=== PATIENT | female | born 1995 | race Caucasian/White ===

== ENCOUNTER 2017-06-08 07:23 | Inpatient (IN) | payer SELFPAY ==
[2017-06-08] MEDS ORDERED: Carboprost Tromethamine 250 MCG/1 ML Amp IM PRN (08:03)
[2017-06-08] MEDS ORDERED: Sodium Chloride 0.9% 10 ML Syringe FLUSH PRN (08:03)
[2017-06-08] MEDS ORDERED: Misoprostol 200 MCG Tab PO PRN (08:03)
[2017-06-08] MEDS ORDERED: Ampicillin 2 GM in Sodium Chloride 0.9% 100 ML IV ONE (08:03)
[2017-06-08] MEDS ORDERED: Methylergonovine 0.2 MG/1 ML Amp IM PRN (08:03)
[2017-06-08] MEDS ORDERED: Butorphanol 1 MG/ML SDV IVPUSH PRN (08:03)
[2017-06-08] MEDS ORDERED: Sodium Chloride 0.9% 2.5 ML Syringe FLUSH PRN (08:03)
[2017-06-08] MEDS ORDERED: Water For Irrigation,Sterile 1,000 ML Container IRR PRN (08:03)
[2017-06-08] MEDS ORDERED: Lidocaine 1% 50 ML MDV INJECT PRN (08:03)
[2017-06-08] MEDS ORDERED: Nalbuphine 10 MG/1 ML Vial IVPUSH PRN (08:03)
[2017-06-08] MEDS ORDERED: Oxytocin/0.9 % Sodium Chloride 30 UNIT/500 ML BAG IV SCH (08:15)
[2017-06-08] MEDS ORDERED: Lactated Ringers 1,000 ML IV SCH (08:15)
[2017-06-08] MEDS ORDERED: Oxytocin 10 Units/1 ML SDV ONE (08:19)
[2017-06-08] MEDS ORDERED: fentaNYL 250 MCG/5 ML SDV ONE (08:21)
[2017-06-08] MEDS ORDERED: Propofol 200 MG/20 ML SDV ONE (08:21)
[2017-06-08] MEDS ORDERED: Succinylcholine/Normal Saline 200 MG/10 ML Syringe ONE (08:21)
[2017-06-08] MEDS ORDERED: Ondansetron 4 MG/2 ML SDV ONE (08:21)
--- NOTE | 2017-06-08 08:30 | PCM.PREANE ---
Preanesthetic Assessment - Anesthesia/Transfusion/Family Hx Anesthesia History: No Prior Anesthesia - Review of Systems General: No Symptoms Pulmonary: No Symptoms Cardiovascular: No Symptoms Gastrointestinal: No Symptoms Neurological: No Symptoms Other: Reports: None - Physical Assessment Height: 5 ft 3 in Weight: 97.522 kg ASA Class: 2E Mental Status: Alert & Oriented x3 Airway Class: Mallampati = 2 Dentition: Reports: Normal Dentition Thyro-Mental Finger Breadths: 3 Mouth Opening Finger Breadths: 3 ROM/Head Extension: Full Lungs: Clear to Auscultation, Normal Respiratory Effort Cardiovascular: Regular Rate, Regular Rhythm - Lab Values: Laboratory Last Values WBC 20.61 K/uL (4.0-11.0) H 06/08/17 07:54 RBC 4.19 M/uL (4.30-5.90) L 06/08/17 07:54 Hgb 12.7 g/dL (12.0-16.0) 06/08/17 07:54 Hct 36.2 % (36.0-46.0) 06/08/17 07:54 MCV 86.4 fL (80.0-98.0) 06/08/17 07:54 MCH 30.3 pg (27.0-32.0) 06/08/17 07:54 MCHC 35.1 g/dL (31.0-37.0) 06/08/17 07:54 RDW Std Deviation 41.2 fl (28.0-62.0) 06/08/17 07:54 RDW Coeff of Moris 13 % (11.0-15.0) 06/08/17 07:54 Plt Count 201 K/uL (150-400) 06/08/17 07:54 MPV 11.40 fL (7.40-12.00) 06/08/17 07:54 Nucleated RBC % 0.0 /100WBC 06/08/17 07:54 Nucleated RBCs # 0 K/uL 06/08/17 07:54 - Allergies Allergies/Adverse Reactions: Allergies Allergy/AdvReac Type Severity Reaction Status Date / Time No Known Allergies Allergy Verified 06/08/17 08:02 - Acknowledgements Anesthesia Type Planned: General Anesthesia Pt an Appropriate Candidate for the Planned Anesthesia: Yes Alternatives and Risks of Anesthesia Discussed w Pt/Guardian: Yes Pt/Guardian Understands and Agrees with Anesthesia Plan: Yes PreAnesthesia Questionnaire HEENT History: Reports: None Cardiovascular History: Reports: None Respiratory History: Reports: None Gastrointestinal History: Reports: GERD Genitourinary History: Reports: None Musculoskeletal History: Reports: None Neurological History: Reports: None Psychiatric History: Reports: None Endocrine/Metabolic History: Reports: None Hematologic History: Reports: None Immunologic History: Reports: None - CURRENT (IN HOUSE) MEDS Current Meds: Current Medications Butorphanol Tartrate (Stadol) 1 mg IVPUSH Q1H PRN PRN Reason: Pain Carboprost Tromethamine (Hemabate Ds) 250 mcg IM ASDIRECTED PRN PRN Reason: Post Hemorrhage Ampicillin Sodium 2 gm/ Sodium (Chloride) 100 mls @ 200 mls/hr IV ONETIME ONE Stop: 06/08/17 08:32 Lactated Ringer's (Ringers, Lactated) 1,000 mls @ 150 mls/hr IV ASDIRECTED LESLY Oxytocin/Sodium Chloride (Oxytocin 30 Unit/500 Ml-Ns) 30 unit in 500 mls @ 500 mls/hr IV TITRATE LESLY Lidocaine HCl (Xylocaine 1%) 50 ml INJECT .ONCE PRN PRN Reason: Laceration repair Methylergonovine Maleate (Methergine) 0.2 mg IM ASDIRECTED PRN PRN Reason: Post Hemorrhage Misoprostol (Cytotec) 200 mcg PO .ONCE PRN PRN Reason: Post Hemorrhage Nalbuphine HCl (Nubain) 10 mg IVPUSH Q1H PRN PRN Reason: Pain (severe 7-10) Sodium Chloride (Saline Flush) 10 ml FLUSH ASDIRECTED PRN PRN Reason: Keep Vein Open Sodium Chloride (Saline Flush) 2.5 ml FLUSH ASDIRECTED PRN PRN Reason: Keep Vein Open Sterile Water (Sterile Water For Irrigation) 1,000 ml IRR ASDIRECTED PRN PRN Reason: delivery Discontinued Medications Fentanyl (Sublimaze) Confirm Administered Dose 250 mcg .ROUTE .STK-MED ONE Stop: 06/08/17 08:22 Ondansetron HCl (Zofran) Confirm Administered Dose 4 mg .ROUTE .STK-MED ONE Stop: 06/08/17 08:22 Oxytocin (Pitocin) Confirm Administered Dose 20 unit .ROUTE .STK-MED ONE Stop: 06/08/17 08:20 Propofol (Diprivan 20 Ml) Confirm Administered Dose 200 mg .ROUTE .STK-MED ONE Stop: 06/08/17 08:22 Succinylcholine Chloride (Succinylcholine In Ns Pf) Confirm Administered Dose 200 mg .ROUTE .STK-MED ONE Stop: 06/08/17 08:22
[2017-06-08 09:16] LABS: CHLORIDE,CL 101 mmol/L (98-110); SODIUM,NA 130 mmol/L (136-146)
--- NOTE | 2017-06-08 09:44 | PCM.SN ---
- Free Text/Narrative Note: CMP added to labs over concerns sustained HTN since patient arrival. Blood pressures have been >170/>100 since being brought to the OR for delivery. Results were reviewed with Dr Villa and IVF's were changed to NS at this time.
[2017-06-08] MEDS ORDERED: ceFAZolin 1 GM Vial ONE (10:03)
[2017-06-08] MEDS ORDERED: Sodium Chloride 0.9% 0 ML ONE (10:03)
[2017-06-08] MEDS ORDERED: Misoprostol 200 MCG Tab ONE (10:41)
--- NOTE | 2017-06-08 11:33 | PCM.DEL ---
L & D Note - General Info Date of Service: 06/08/17 Mother's Due Date: 06/08/17 - Delivery Note Labor: Spontaneous Delivery Outcome: Livebirth Infant Delivery Method: Spontaneous Vaginal Delivery-Twins Presentation: "B" was breech and Dr Villa preformed an ECV Nuchal Cord: None Anesthesia Type: None Amniotic Fluid Description: Clear Episiotomy Type: None Laceration: None Placenta: Intact, Spontaneous Cord: 3 Vessels Resuscitation Needed: No Provider: Madonna Santiago Score 1 min: 9 Score 5 min: 9 Second Stage Interventions: Reports: Pushing, McRobert's Position Delivery Comments (Free Text/Narrative):: of twin girls over intact perineum. Twin A delivered with effective pushing , Head and body followed easily. to mothers abd with RN at bs for evaluation. Delayed cord clamping for 1 min. CC and cut. Infant to warmer for further evaluation. Ultrasound noted twin B breach with head in upper right quad. Dr Villa preformed an ECV under u/s guidance. Baby B delivered with good pushing in the cephalic presentation. Shoulders and body followed easily. Infant to mothers abd, CC x2 and cut by FOB. to warmer for evaluation. Pitocin to IVF. Placentas delivered grossly intact fussed. Inspection noted intact perineum. Uterus boggy, cytotec 600mcg po and methergine added to pitocin to stem the bleeding. Bladder drained with cath, Bleeding went to scant within 10 min. Bimanual normal. EBL 500cc, AGPARS A 03/22, B 8 Wt: A: 5lb 5oz, B : pending. Mother moved from OR to pp room and infants brought to her for breast feeding. Mother and babies stable and bonding well. All counts were correct. - General Info Date of Service: 06/08/17 Functional Status: Reports: Pain Controlled, Tolerating Diet - Review of Systems General: Reports: No Symptoms HEENT: Reports: No Symptoms Pulmonary: Reports: No Symptoms Cardiovascular: Reports: No Symptoms Gastrointestinal: Reports: No Symptoms Genitourinary: Reports: No Symptoms Musculoskeletal: Reports: No Symptoms Skin: Reports: No Symptoms Neurological: Reports: No Symptoms Psychiatric: Reports: No Symptoms - Patient Data Weight - Most Recent: 97.522 kg Lab Results Last 24 Hours: Laboratory Results - last 24 hr 06/08/17 06/08/17 06/08/17 Range/Units 07:54 07:54 07:54 WBC 20.61 H (4.0-11.0) K/uL RBC 4.19 L (4.30-5.90) M/uL Hgb 12.7 (12.0-16.0) g/dL Hct 36.2 (36.0-46.0) % MCV 86.4 (80.0-98.0) fL MCH 30.3 (27.0-32.0) pg MCHC 35.1 (31.0-37.0) g/dL RDW Std Deviation 41.2 (28.0-62.0) fl RDW Coeff of Moris 13 (11.0-15.0) % Plt Count 201 (150-400) K/uL MPV 11.40 (7.40-12.00) fL Nucleated RBC % 0.0 /100WBC Nucleated RBCs # 0 K/uL Sodium 130 L (136-146) mmol/L Potassium 3.7 (3.5-5.1) mmol/L Chloride 101 (98-110) mmol/L Carbon Dioxide 17 L (21-31) mmol/L BUN 13 (6.0-23.0) mg/dL Creatinine 0.7 (0.6-1.5) mg/dL Est Cr Clr Drug Dosing 103.40 mL/min Estimated GFR (MDRD) > 60.0 ml/min Glucose 138 H (60-110) mg/dL Calcium 8.6 L (8.8-10.8) mg/dL Total Bilirubin 0.4 (0.1-1.5) mg/dL AST 21 (5-40) IU/L ALT 16 (8-54) IU/L Alkaline Phosphatase 158 H (40-150) Total Protein 6.5 (6.0-8.0) g/dL Albumin 3.2 L (3.5-5.0) g/dL Globulin 3.3 (2.0-3.5) g/dL Albumin/Globulin Ratio 1.0 L (1.3-2.8) Blood Type A POSITIVE Antibody Screen NEGATIVE Med Orders - Current: Current Medications Butorphanol Tartrate (Stadol) 1 mg IVPUSH Q1H PRN PRN Reason: Pain Carboprost Tromethamine (Hemabate Ds) 250 mcg IM ASDIRECTED PRN PRN Reason: Post Hemorrhage Lactated Ringer's (Ringers, Lactated) 1,000 mls @ 150 mls/hr IV ASDIRECTED LESLY Oxytocin/Sodium Chloride (Oxytocin 30 Unit/500 Ml-Ns) 30 unit in 500 mls @ 500 mls/hr IV TITRATE LESLY Lidocaine HCl (Xylocaine 1%) 50 ml INJECT .ONCE PRN PRN Reason: Laceration repair Methylergonovine Maleate (Methergine) 0.2 mg IM ASDIRECTED PRN PRN Reason: Post Hemorrhage Misoprostol (Cytotec) 200 mcg PO .ONCE PRN PRN Reason: Post Hemorrhage Nalbuphine HCl (Nubain) 10 mg IVPUSH Q1H PRN PRN Reason: Pain (severe 7-10) Sodium Chloride (Saline Flush) 10 ml FLUSH ASDIRECTED PRN PRN Reason: Keep Vein Open Sodium Chloride (Saline Flush) 2.5 ml FLUSH ASDIRECTED PRN PRN Reason: Keep Vein Open Sterile Water (Sterile Water For Irrigation) 1,000 ml IRR ASDIRECTED PRN PRN Reason: delivery Discontinued Medications Cefazolin Sodium (Ancef) Confirm Administered Dose 2 gm .ROUTE .STK-MED ONE Stop: 06/08/17 10:04 Fentanyl (Sublimaze) Confirm Administered Dose 250 mcg .ROUTE .STK-MED ONE Stop: 06/08/17 08:22 Ampicillin Sodium 2 gm/ Sodium (Chloride) 100 mls @ 200 mls/hr IV ONETIME ONE Stop: 06/08/17 08:32 Sodium Chloride (Normal Saline) Confirm Administered Dose 20 mls @ as directed .ROUTE .STK-MED ONE Stop: 06/08/17 10:04 Misoprostol (Cytotec) Confirm Administered Dose 600 mcg .ROUTE .STK-MED ONE Stop: 06/08/17 10:42 Ondansetron HCl (Zofran) Confirm Administered Dose 4 mg .ROUTE .STK-MED ONE Stop: 06/08/17 08:22 Oxytocin (Pitocin) Confirm Administered Dose 20 unit .ROUTE .STK-MED ONE Stop: 06/08/17 08:20 Propofol (Diprivan 20 Ml) Confirm Administered Dose 200 mg .ROUTE .STK-MED ONE Stop: 06/08/17 08:22 Succinylcholine Chloride (Succinylcholine In Ns Pf) Confirm Administered Dose 200 mg .ROUTE .STK-MED ONE Stop: 06/08/17 08:22 - Exam General: Alert, Oriented Lungs: Normal Respiratory Effort GI/Abdominal Exam: Soft, Non-Tender (Female) Exam: Normal External Exam, Normal Bimanual Exam, Vaginal Bleeding Back Exam: Full Range of Motion Extremities: Normal Range of Motion, Non-Tender, No Pedal Edema, Normal Capillary Refill Skin: Warm, Dry, Intact Wound/Incisions: Healing Well Neurological: No New Focal Deficit, Normal Speech, Normal Tone Psy/Mental Status: Alert, Normal Affect, Normal Mood - Problem List & Annotations (1) Twin gestation in third trimester SNOMED Code(s): 60991634 Code(s): O30.003 - TWIN PREG, UNSP NUM PLCNTA & AMNIO SACS, THIRD TRIMESTER Status: Acute Priority: High Current Visit: Yes Qualifiers: Multiple gestation type: monochorionic and diamniotic Qualified Code(s): O30.033 - Twin , monochorionic/diamniotic, third trimester (2) (normal spontaneous vaginal delivery) SNOMED Code(s): 97076837 Code(s): O80 - ENCOUNTER FOR FULL-TERM UNCOMPLICATED DELIVERY Status: Acute Priority: High Current Visit: Yes - Problem List Review Problem List Initiated/Reviewed/Updated: Yes - Assessment Assessment:: Delivery A: twins, APGARS 9/9 and 8/9. Wt: 5lb 5oz B pending. EBL 500cc, intact, stable P: routine pp plan of care
--- NOTE | 2017-06-08 11:58 | PCM.LDHP ---
L&D History of Present Illness - General Date of Service: 06/08/17 Admit Problem/Dx: Patient Status Order with Admit Dx/Problem 06/08/17 08:04 Patient Status [ADT] Routine Admission Diagnosis/Problem Admission Diagnosis/Problem - planned 06/08/17 11:54 21yo G1 EDC 06/08/2017 40 0/7wks. TWINS, A+, rubella and GBS unkwn. PNC with home lime sludge mixer. Comes completely dilated vertex/breech presentation. Source of Information: Patient History Limitations: Reports: No Limitations - History of Present Illness Improves with: Reports: None Worsens with: Reports: None Associated Symptoms: Reports: N - Related Data Allergies/Adverse Reactions: Allergies Allergy/AdvReac Type Severity Reaction Status Date / Time No Known Allergies Allergy Verified 06/08/17 08:02 Past Medical History HEENT History: Reports: None Cardiovascular History: Reports: None Respiratory History: Reports: None Gastrointestinal History: Reports: GERD Genitourinary History: Reports: None Musculoskeletal History: Reports: None Neurological History: Reports: None Psychiatric History: Reports: None Endocrine/Metabolic History: Reports: None Hematologic History: Reports: None Immunologic History: Reports: None H&P Review of Systems - Review of Systems: Review Of Systems: See Below General: Reports: No Symptoms HEENT: Reports: No Symptoms Pulmonary: Reports: No Symptoms Cardiovascular: Reports: No Symptoms Gastrointestinal: Reports: No Symptoms Genitourinary: Reports: No Symptoms Musculoskeletal: Reports: No Symptoms Skin: Reports: No Symptoms Psychiatric: Reports: No Symptoms Neurological: Reports: No Symptoms Hematologic/Lymphatic: Reports: No Symptoms Immunologic: Reports: No Symptoms L&D Exam - Exam Exam: See Below - Vital Signs Weight: 97.522 kg - OB Specific Presentation: "B" was breech and Dr Villa preformed an ECV - Exam General: Alert, Oriented, Cooperative HEENT: Hearing Intact Lungs: Normal Respiratory Effort GI/Abdominal Exam: Soft, Non-Tender, No Organomegaly, No Distention (gravid twins) Rectal Exam: Deferred Genitourinary: Normal external exam, Normal bimanual exam Back Exam: Full Range of Motion Extremities: Normal Range of Motion, Non-Tender, No Pedal Edema, Normal Capillary Refill Skin: Warm, Dry, Intact Neurological: Reflexes Equal Bilateral, Strength Equal Bilateral, Normal Gait, Normal Speech, Normal Tone Psychiatric: Alert, Normal Affect, Normal Mood - Patient Data Lab Results Last 24 hrs: Laboratory Results - last 24 hr 06/08/17 06/08/17 06/08/17 Range/Units 07:54 07:54 07:54 WBC 20.61 H (4.0-11.0) K/uL RBC 4.19 L (4.30-5.90) M/uL Hgb 12.7 (12.0-16.0) g/dL Hct 36.2 (36.0-46.0) % MCV 86.4 (80.0-98.0) fL MCH 30.3 (27.0-32.0) pg MCHC 35.1 (31.0-37.0) g/dL RDW Std Deviation 41.2 (28.0-62.0) fl RDW Coeff of Moris 13 (11.0-15.0) % Plt Count 201 (150-400) K/uL MPV 11.40 (7.40-12.00) fL Nucleated RBC % 0.0 /100WBC Nucleated RBCs # 0 K/uL Sodium 130 L (136-146) mmol/L Potassium 3.7 (3.5-5.1) mmol/L Chloride 101 (98-110) mmol/L Carbon Dioxide 17 L (21-31) mmol/L BUN 13 (6.0-23.0) mg/dL Creatinine 0.7 (0.6-1.5) mg/dL Est Cr Clr Drug Dosing 103.40 mL/min Estimated GFR (MDRD) > 60.0 ml/min Glucose 138 H (60-110) mg/dL Calcium 8.6 L (8.8-10.8) mg/dL Total Bilirubin 0.4 (0.1-1.5) mg/dL AST 21 (5-40) IU/L ALT 16 (8-54) IU/L Alkaline Phosphatase 158 H (40-150) Total Protein 6.5 (6.0-8.0) g/dL Albumin 3.2 L (3.5-5.0) g/dL Globulin 3.3 (2.0-3.5) g/dL Albumin/Globulin Ratio 1.0 L (1.3-2.8) Blood Type A POSITIVE Antibody Screen NEGATIVE Result Diagrams: 06/08/17 07:54 06/08/17 07:54 - Problem List (1) Twin gestation in third trimester SNOMED Code(s): 46640866 ICD Code: O30.003 - TWIN PREG, UNSP NUM PLCNTA & AMNIO SACS, THIRD TRIMESTER Status: Acute Priority: High Current Visit: Yes Qualifiers: Multiple gestation type: monochorionic and diamniotic Qualified Code(s): O30.033 - Twin , monochorionic/diamniotic, third trimester (2) (normal spontaneous vaginal delivery) SNOMED Code(s): 69453716 ICD Code: O80 - ENCOUNTER FOR FULL-TERM UNCOMPLICATED DELIVERY Status: Acute Priority: High Current Visit: Yes Problem List Initiated/Reviewed/Updated: Yes Orders Last 24hrs: Active Orders 24 hr Category Date Time Status Patient Status [ADT] Routine ADT 06/08/17 08:04 Active Heart Tones [RC] CONTINUOUS Care 06/08/17 08:04 Active Non Stress Test [RC] PER UNIT ROUTINE Care 06/08/17 08:04 Active May Shower [RC] ASDIRECTED Care 06/08/17 08:04 Active Notify Provider [RC] PRN Care 06/08/17 08:04 Active Up ad Margarette [RC] ASDIRECTED Care 06/08/17 08:04 Active Vaginal Exam [RC] PRN Care 06/08/17 08:04 Active Vital Signs [RC] PER UNIT ROUTINE Care 06/08/17 08:04 Active OB 2 Or 3 Tri Ea Addl Gest [US] Urgent Exams 06/08/17 08:03 Taken OB 2 Or 3 Tri Sgl 1st Gest [US] Urgent Exams 06/08/17 08:03 Ordered Butorphanol [Stadol] Med 06/08/17 08:03 Active 1 mg IVPUSH Q1H PRN Carboprost Tromethamine [Hemabate DS] Med 06/08/17 08:03 Active 250 mcg IM ASDIRECTED PRN Lactated Ringers [Ringers, Lactated] 1,000 ml Med 06/08/17 08:15 Active IV ASDIRECTED Lidocaine 1% [Xylocaine 1%] Med 06/08/17 08:03 Active 50 ml INJECT .ONCE PRN Methylergonovine [Methergine] Med 06/08/17 08:03 Active 0.2 mg IM ASDIRECTED PRN Misoprostol [Cytotec] Med 06/08/17 08:03 Active 200 mcg PO .ONCE PRN Nalbuphine [Nubain] Med 06/08/17 08:03 Active 10 mg IVPUSH Q1H PRN Oxytocin/0.9 % Sodium Chloride [Oxytocin 30 Unit/500 ML Med 06/08/17 08:15 Active -NS] 30 unit in 500 ml IV TITRATE Sodium Chloride 0.9% [Saline Flush] Med 06/08/17 08:03 Active 10 ml FLUSH ASDIRECTED PRN Sodium Chloride 0.9% [Saline Flush] Med 06/08/17 08:03 Active 2.5 ml FLUSH ASDIRECTED PRN Water For Irrigation,Sterile [Sterile Water for Med 06/08/17 08:03 Active Irrigation] 1,000 ml IRR ASDIRECTED PRN Scalp Electrode [WOMSER] Per Unit Routine Oth 06/08/17 08:04 Ordered Peripheral IV Insertion Adult [OM.PC] Routine Oth 06/08/17 08:04 Ordered Resuscitation Status Routine Resus Stat 06/08/17 08:03 Ordered Medication Orders Butorphanol Tartrate (Stadol) 1 mg IVPUSH Q1H PRN PRN Reason: Pain Carboprost Tromethamine (Hemabate Ds) 250 mcg IM ASDIRECTED PRN PRN Reason: Post Hemorrhage Lactated Ringer's (Ringers, Lactated) 1,000 mls @ 150 mls/hr IV ASDIRECTED LESLY Oxytocin/Sodium Chloride (Oxytocin 30 Unit/500 Ml-Ns) 30 unit in 500 mls @ 500 mls/hr IV TITRATE LESLY Lidocaine HCl (Xylocaine 1%) 50 ml INJECT .ONCE PRN PRN Reason: Laceration repair Methylergonovine Maleate (Methergine) 0.2 mg IM ASDIRECTED PRN PRN Reason: Post Hemorrhage Misoprostol (Cytotec) 200 mcg PO .ONCE PRN PRN Reason: Post Hemorrhage Nalbuphine HCl (Nubain) 10 mg IVPUSH Q1H PRN PRN Reason: Pain (severe 7-10) Sodium Chloride (Saline Flush) 10 ml FLUSH ASDIRECTED PRN PRN Reason: Keep Vein Open Sodium Chloride (Saline Flush) 2.5 ml FLUSH ASDIRECTED PRN PRN Reason: Keep Vein Open Sterile Water (Sterile Water For Irrigation) 1,000 ml IRR ASDIRECTED PRN PRN Reason: delivery Assessment/Plan Comment:: A:21yo G1 EDC 06/08/2017 40 0/7wks. TWINS, A+, rubella and GBS unkwn. PNC with home lime sludge mixer. Comes completely dilated vertex/breech presentation. Comes in labor completely dilated. Term twin . care from her mother whom is a lay out former. P: Moved to OR for and ECV by Dr Villa and then B delivered . Mother and baby's stable and bonding well.
[2017-06-08] MEDS ORDERED: Lanolin 100% Cream 7 GM Tube TOP PRN (12:00)
[2017-06-08] MEDS ORDERED: Benzocaine/Menthol 20%-0.5% Spray 78 GM Cannister TOP PRN (12:00)
[2017-06-08] MEDS ORDERED: oxyCODONE 5 MG Tab PO PRN (12:00)
[2017-06-08] MEDS ORDERED: Bisacodyl 10 MG Supp RECTAL PRN (12:00)
[2017-06-08] MEDS ORDERED: Witch Hazel Medicated Pads 40/Jar TOP PRN (12:00)
[2017-06-08] MEDS ORDERED: Docusate Sodium 100 MG Cap PO PRN (12:00)
[2017-06-08] MEDS ORDERED: Acetaminophen 500 MG Tab PO PRN ×2 (12:00)
[2017-06-08] MEDS ORDERED: Ibuprofen 800 MG Tab PO PRN (12:00)
[2017-06-08] MEDS ORDERED: Ibuprofen 400 MG Tab PO PRN (12:00)
--- NOTE | 2017-06-08 22:23 | OR ---
SURGEON: Scott Villa MD DATE OF PROCEDURE: HISTORY: Ms. Cohen is a 21-year-old primigravida. She has had no care. She presented to Labor and Delivery in active labor and she was completely dilated with vertex presentation. She informed the nurses in Labor and Delivery that she is with twins and they are term and the second one breech. At the time of admission to the hospital, the patient's vital sign was stable. heart rate for both fetus was category 1. On further inquiry, the patient said she was receiving the care from her mother who is a public relations player and they were planning to have home delivery, but however, the patient's mother who is a public relations player when the patient progressed to complete she ruptured the bag of the water and she thought better of it and she transferred the patient to the hospital. Upon evaluation at the admission of the hospital, her vital signs were essentially normal, the heart rate was category 1 for both fetuses. Her vaginal examination shows that she is complete vertex, 0 to +1 station, and I informed the patient that we are going to transfer her to the operative room and we would try to do a vaginal delivery in the operative room. DESCRIPTION OF PROCEDURE: Core Inserter, Dr. Santiago was called and the OR crew was called to be on standby. Anesthesia was available in-house and I informed the patient that we will deliver the first fetus vaginally and then we would try to do external version if it was possible for the second fetus to see if we can rotate it to vertex presentation since it is confirmed to be transfer with the back up by the ultrasound and the head was in the right upper quadrant. The patient informed that if we were unable to turn the baby, she would have section under general anesthesia. If we have any abnormality in the heart rate, then she would have a section under general anesthesia. I explained that to her and the father of the baby and her mother this process in detail. She has consented for it. The patient has commenced to push and Chelsi Martinez rotating attained delivery and the fist twin delivered without any problem and it cried immediately and scores reported to be 8 to 9. The weight was not available and Dr. Santiago proceeded to take care of the fetus. Next, I did an ultrasound and I guided the fetus head towards the pelvis. However, the shoulder was engaged in the pelvis and preventing the head from descend, so a partial external cephalic version was performed at that time. The patient did have a ruptured membrane of the second sac and a combination of me doing external and internal cephalic version, I was able to guide the baby's head to the canal and with the patient pushing, then the head was engaged in the canal. heart rate was between 156 to 176. We started the patient on Pitocin and she started having irregular contraction and then descent happened and then she started pushing. With that, she was able to accomplish vaginal delivery of the second twin without any problem. Fetus cried immediately. scores reported to be [address] Santiago proceeded to take care and resuscitate the baby. Then, both placentas were delivered spontaneous without any problem. There was a small labial laceration. Episiotomy was not needed. The labial laceration was not bleeding and did not need to be repaired. However, the patient did have a moderate amount of bleeding after that and she responded to methargen and Cytotec and the bleeding stopped. Estimated blood loss from this delivery is about 500 mL. There was no complication through the process of labor. AJAY / KORI /[id number]
--- NOTE | 2017-06-09 08:31 | PCM.PNPP ---
- General Info Date of Service: 06/09/17 Admission Dx/Problem (Free Text): Patient Status Order with Admit Dx/Problem 06/08/17 08:04 Patient Status [ADT] Routine Admission Diagnosis/Problem Admission Diagnosis/Problem - planned 06/08/17 11:54 21yo G1 EDC 06/08/2017 40 0/7wks. TWINS, A+, rubella and GBS unkwn. PNC with home director agency & strategic partnerships. Comes completely dilated vertex/breech presentation. Functional Status: Reports: Pain Controlled, Tolerating Diet, Ambulating, Urinating - Review of Systems General: Reports: No Symptoms HEENT: Reports: No Symptoms Pulmonary: Reports: No Symptoms Cardiovascular: Reports: No Symptoms Gastrointestinal: Reports: No Symptoms Genitourinary: Reports: No Symptoms Musculoskeletal: Reports: No Symptoms Skin: Reports: No Symptoms Neurological: Reports: No Symptoms Psychiatric: Reports: No Symptoms - General Info Date of Service: 06/09/17 - Patient Data Vital Signs - Most Recent: Last Vital Signs Temp 37.1 C 06/09/17 05:00 Pulse 108 H 06/09/17 05:00 Resp 18 06/09/17 05:00 BP 132/82 06/09/17 05:00 Pulse Ox 99 06/08/17 20:31 Weight - Most Recent: 97.522 kg Lab Results - Last 24 Hours: Laboratory Results - last 24 hr 06/08/17 06/08/17 Range/Units 07:54 07:54 Sodium 130 L (136-146) mmol/L Potassium 3.7 (3.5-5.1) mmol/L Chloride 101 (98-110) mmol/L Carbon Dioxide 17 L (21-31) mmol/L BUN 13 (6.0-23.0) mg/dL Creatinine 0.7 (0.6-1.5) mg/dL Est Cr Clr Drug Dosing 103.40 mL/min Estimated GFR (MDRD) > 60.0 ml/min Glucose 138 H (60-110) mg/dL Calcium 8.6 L (8.8-10.8) mg/dL Total Bilirubin 0.4 (0.1-1.5) mg/dL AST 21 (5-40) IU/L ALT 16 (8-54) IU/L Alkaline Phosphatase 158 H (40-150) Total Protein 6.5 (6.0-8.0) g/dL Albumin 3.2 L (3.5-5.0) g/dL Globulin 3.3 (2.0-3.5) g/dL Albumin/Globulin Ratio 1.0 L (1.3-2.8) Blood Type A POSITIVE Antibody Screen NEGATIVE Med Orders - Current: Current Medications Acetaminophen (Tylenol Extra Strength) 500 mg PO Q4H PRN PRN Reason: Pain Acetaminophen (Tylenol Extra Strength) 1,000 mg PO Q4H PRN PRN Reason: Pain Benzocaine/Menthol (Dermoplast Pain Relief 20%-0.5% [place]) 78 gm TOP ASDIRECTED PRN PRN Reason: Perineal Comfort Measure Bisacodyl (Dulcolax) 10 mg RECTAL .ONCE PRN PRN Reason: Constipation Docusate Sodium (Colace) 100 mg PO BID PRN PRN Reason: Constipation Emollient Ointment (Lansinoh Hpa) 0 gm TOP ASDIRECTED PRN PRN Reason: Sore Nipples Ibuprofen (Motrin) 400 mg PO Q4H PRN PRN Reason: Pain Ibuprofen (Motrin) 800 mg PO Q6H PRN PRN Reason: Pain Oxycodone HCl (Oxycodone) 5 mg PO Q2H PRN PRN Reason: Pain Witch Maria L (Tucks) 1 pad TOP ASDIRECTED PRN PRN Reason: comfort care Discontinued Medications Butorphanol Tartrate (Stadol) 1 mg IVPUSH Q1H PRN PRN Reason: Pain Carboprost Tromethamine (Hemabate Ds) 250 mcg IM ASDIRECTED PRN PRN Reason: Post Hemorrhage Cefazolin Sodium (Ancef) Confirm Administered Dose 2 gm .ROUTE .STK-MED ONE Stop: 06/08/17 10:04 Fentanyl (Sublimaze) Confirm Administered Dose 250 mcg .ROUTE .STK-MED ONE Stop: 06/08/17 08:22 Ampicillin Sodium 2 gm/ Sodium (Chloride) 100 mls @ 200 mls/hr IV ONETIME ONE Stop: 06/08/17 08:32 Lactated Ringer's (Ringers, Lactated) 1,000 mls @ 150 mls/hr IV ASDIRECTED [facility] Oxytocin/Sodium Chloride (Oxytocin 30 Unit/500 Ml-Ns) 30 unit in 500 mls @ 500 mls/hr IV TITRATE LESLY Sodium Chloride (Normal Saline) Confirm Administered Dose 0 mls @ as directed .ROUTE .STK-MED ONE Stop: 06/08/17 10:04 Lidocaine HCl (Xylocaine 1%) 50 ml INJECT .ONCE PRN PRN Reason: Laceration repair Methylergonovine Maleate (Methergine) 0.2 mg IM ASDIRECTED PRN PRN Reason: Post Hemorrhage Misoprostol (Cytotec) 200 mcg PO .ONCE PRN PRN Reason: Post Hemorrhage Misoprostol (Cytotec) Confirm Administered Dose 600 mcg .ROUTE .STK-MED ONE Stop: 06/08/17 10:42 Nalbuphine HCl (Nubain) 10 mg IVPUSH Q1H PRN PRN Reason: Pain (severe 7-10) Ondansetron HCl (Zofran) Confirm Administered Dose 4 mg .ROUTE .STK-MED ONE Stop: 06/08/17 08:22 Oxytocin (Pitocin) Confirm Administered Dose 20 unit .ROUTE .STK-MED ONE Stop: 06/08/17 08:20 Propofol (Diprivan 20 Ml) Confirm Administered Dose 200 mg .ROUTE .STK-MED ONE Stop: 06/08/17 08:22 Sodium Chloride (Saline Flush) 10 ml FLUSH ASDIRECTED PRN PRN Reason: Keep Vein Open Sodium Chloride (Saline Flush) 2.5 ml FLUSH ASDIRECTED PRN PRN Reason: Keep Vein Open Sterile Water (Sterile Water For Irrigation) 1,000 ml IRR ASDIRECTED PRN PRN Reason: delivery Succinylcholine Chloride (Succinylcholine In Ns Pf) Confirm Administered Dose 200 mg .ROUTE .STK-MED ONE Stop: 06/08/17 08:22 - Infant Interaction Disposition, : Prentice to Nursery Interaction: Holding Infant Feeding: Attempted ; Nursed Fair/Poor (Twin A not feeding well), Breastfed Infant; Nursed Well Support Person: , Mother - Recovery Exam Fundal Tone: Firm Fundal Level: 1 Fingerbreadths Below Umbilicus Fundal Placement: Midline Lochia Amount: Small Lochia Color: Rubra/Red Perineum Description: Intact, Minimal Bruising/Swelling Episiotomy/Laceration: None Bladder Status: Voiding Urinary Elimination: Voided - Exam General: Alert, Oriented, Cooperative, No Acute Distress Lungs: Clear to Auscultation, Normal Respiratory Effort, Stridor Cardiovascular: Regular Rate, Regular Rhythm GI/Abdominal Exam: Soft, Non-Tender Extremities: Normal Range of Motion, Non-Tender, No Pedal Edema, Normal Capillary Refill Skin: Warm, Dry, Intact Wound/Incisions: Healing Well Neurological: No New Focal Deficit, Normal Speech, Normal Tone Psy/Mental Status: Alert, Normal Affect, Normal Mood - Problem List & Annotations (1) Twin gestation in third trimester SNOMED Code(s): 76753319 Code(s): O30.003 - TWIN PREG, UNSP NUM PLCNTA & AMNIO SACS, THIRD TRIMESTER Status: Acute Priority: High Current Visit: Yes Qualifiers: Multiple gestation type: monochorionic and diamniotic Qualified Code(s): O30.033 - Twin , monochorionic/diamniotic, third trimester (2) (normal spontaneous vaginal delivery) SNOMED Code(s): 53996990 Code(s): O80 - ENCOUNTER FOR FULL-TERM UNCOMPLICATED DELIVERY Status: Acute Priority: High Current Visit: Yes - Problem List Review Problem List Initiated/Reviewed/Updated: Yes - My Orders Last 24 Hours: My Active Orders 06/08/17 12:00 May Shower [RC] ASDIRECTED Up ad Margarette [RC] ASDIRECTED Vital Signs [RC] PER UNIT ROUTINE Acetaminophen [Tylenol Extra Strength] 1,000 mg PO Q4H PRN Acetaminophen [Tylenol Extra Strength] 500 mg PO Q4H PRN Benzocaine/Menthol [Dermoplast Pain Relief 20%-0.5% [place]] 78 gm TOP ASDIRECTED PRN Bisacodyl [Dulcolax] 10 mg RECTAL .ONCE PRN Docusate Sodium [Colace] 100 mg PO BID PRN Ibuprofen [Motrin] 400 mg PO Q4H PRN Ibuprofen [Motrin] 800 mg PO Q6H PRN Lanolin [Lansinoh HPA] See Dose Instructions TOP ASDIRECTED PRN Witch Maria L [Tucks] 1 pad TOP ASDIRECTED PRN oxyCODONE 5 mg PO Q2H PRN Assess Lochia [WOMSER] Per Unit Routine Assess Uterine Involution [WOMSER] Per Unit Routine Peripheral IV Discontinue [OM.PC] Routine Resuscitation Status Routine 06/08/17 12:01 Patient Status [ADT] Routine 06/08/17 Lunch Regular Diet [DIET] - Assessment Assessment:: Delivery A: twins, APGARS 9/9 and 8/9. Wt: 5lb 5oz B pending. EBL 500cc, intact, stable P: routine pp plan of care PP day 1 A: VSS 130/80, AF, lochia small, FF, no concerns. Breast feeding. - Plan Plan:: A:21yo G1 EDC 06/08/2017 40 0/7wks. TWINS, A+, rubella and GBS unkwn. PNC with home director agency & [employer] partnerships. Comes completely dilated vertex/breech presentation. Comes in labor completely dilated. Term twin . care from her mother whom is a clay transporter. P: Moved to OR for and ECV by Dr Villa and then B delivered . Mother and baby's stable and bonding well. PP day 1 Continue pp plan of care. Will not discharge home today due to babies needing to stay another 24 hours minimum
[2017-06-09] MEDS ORDERED: NIFEdipine 30 MG Tab.ER PO ONE (17:08)
--- NOTE | 2017-06-10 09:03 | PCM.PNPP ---
- General Info Date of Service: 06/10/17 Functional Status: Reports: Pain Controlled - Review of Systems General: Reports: No Symptoms HEENT: Reports: No Symptoms Pulmonary: Reports: No Symptoms Cardiovascular: Reports: No Symptoms Gastrointestinal: Reports: No Symptoms Genitourinary: Reports: No Symptoms Musculoskeletal: Reports: No Symptoms Skin: Reports: No Symptoms Neurological: Reports: No Symptoms Psychiatric: Reports: No Symptoms - General Info Date of Service: 06/10/17 - Patient Data Vital Signs - Most Recent: Last Vital Signs Temp 36.6 C 06/10/17 04:00 Pulse 98 06/10/17 04:00 Resp 18 06/10/17 04:00 BP 134/79 06/10/17 04:00 Pulse Ox 100 06/10/17 04:00 Weight - Most Recent: 97.522 kg Lab Results - Last 24 Hours: Laboratory Results - last 24 hr 06/09/17 Range/Units 08:35 Urine Opiates Screen NEGATIVE (NEGATIVE) Ur Oxycodone Screen NEGATIVE (NEGATIVE) Urine Methadone Screen NEGATIVE (NEGATIVE) Ur Barbiturates Screen NEGATIVE (NEGATIVE) Ur Phencyclidine Scrn NEGATIVE (NEGATIVE) Ur Amphetamine Screen NEGATIVE (NEGATIVE) U Methamphetamines Scrn NEGATIVE (NEGATIVE) U Benzodiazepines Scrn NEGATIVE (NEGATIVE) U Cocaine Metab Screen NEGATIVE (NEGATIVE) U Marijuana (THC) Screen NEGATIVE (NEGATIVE) Med Orders - Current: Current Medications Acetaminophen (Tylenol Extra Strength) 500 mg PO Q4H PRN PRN Reason: Pain Acetaminophen (Tylenol Extra Strength) 1,000 mg PO Q4H PRN PRN Reason: Pain Last Admin: 06/09/17 17:43 Dose: 1,000 mg Benzocaine/Menthol (Dermoplast Pain Relief 20%-0.5% [place]) 78 gm TOP ASDIRECTED PRN PRN Reason: Perineal Comfort Measure Bisacodyl (Dulcolax) 10 mg RECTAL .ONCE PRN PRN Reason: Constipation Docusate Sodium (Colace) 100 mg PO BID PRN PRN Reason: Constipation Emollient Ointment (Lansinoh Hpa) 0 gm TOP ASDIRECTED PRN PRN Reason: Sore Nipples Ibuprofen (Motrin) 400 mg PO Q4H PRN PRN Reason: Pain Ibuprofen (Motrin) 800 mg PO Q6H PRN PRN Reason: Pain Oxycodone HCl (Oxycodone) 5 mg PO Q2H PRN PRN Reason: Pain Witch Maria L (Tucks) 1 pad TOP ASDIRECTED PRN PRN Reason: comfort care Discontinued Medications Butorphanol Tartrate (Stadol) 1 mg IVPUSH Q1H PRN PRN Reason: Pain Carboprost Tromethamine (Hemabate Ds) 250 mcg IM ASDIRECTED PRN PRN Reason: Post Hemorrhage Cefazolin Sodium (Ancef) Confirm Administered Dose 2 gm .ROUTE .STK-MED ONE Stop: 06/08/17 10:04 Fentanyl (Sublimaze) Confirm Administered Dose 250 mcg .ROUTE .STK-MED ONE Stop: 06/08/17 08:22 Ampicillin Sodium 2 gm/ Sodium (Chloride) 100 mls @ 200 mls/hr IV ONETIME ONE Stop: 06/08/17 08:32 Lactated Ringer's (Ringers, Lactated) 1,000 mls @ 150 mls/hr IV ASDIRECTED LESLY Oxytocin/Sodium Chloride (Oxytocin 30 Unit/500 Ml-Ns) 30 unit in 500 mls @ 500 mls/hr IV TITRATE LESLY Sodium Chloride (Normal Saline) Confirm Administered Dose 0 mls @ as directed .ROUTE .STK-MED ONE Stop: 06/08/17 10:04 Lidocaine HCl (Xylocaine 1%) 50 ml INJECT .ONCE PRN PRN Reason: Laceration repair Methylergonovine Maleate (Methergine) 0.2 mg IM ASDIRECTED PRN PRN Reason: Post Hemorrhage Misoprostol (Cytotec) 200 mcg PO .ONCE PRN PRN Reason: Post Hemorrhage Misoprostol (Cytotec) Confirm Administered Dose 600 mcg .ROUTE .STK-MED ONE Stop: 06/08/17 10:42 Nalbuphine HCl (Nubain) 10 mg IVPUSH Q1H PRN PRN Reason: Pain (severe 7-10) Nifedipine (Procardia Xl) 30 mg PO ONETIME ONE Stop: 06/09/17 17:09 Last Admin: 06/09/17 17:40 Dose: 30 mg Ondansetron HCl (Zofran) Confirm Administered Dose 4 mg .ROUTE .STK-MED ONE Stop: 06/08/17 08:22 Oxytocin (Pitocin) Confirm Administered Dose 20 unit .ROUTE .STK-MED ONE Stop: 06/08/17 08:20 Propofol (Diprivan 20 Ml) Confirm Administered Dose 200 mg .ROUTE .STK-MED ONE Stop: 06/08/17 08:22 Sodium Chloride (Saline Flush) 10 ml FLUSH ASDIRECTED PRN PRN Reason: Keep Vein Open Sodium Chloride (Saline Flush) 2.5 ml FLUSH ASDIRECTED PRN PRN Reason: Keep Vein Open Sterile Water (Sterile Water For Irrigation) 1,000 ml IRR ASDIRECTED PRN PRN Reason: delivery Succinylcholine Chloride (Succinylcholine In Ns Pf) Confirm Administered Dose 200 mg .ROUTE .STK-MED ONE Stop: 06/08/17 08:22 - Infant Interaction Infant Disposition, : to Nursery Interaction: Holding Infant Feeding: Attempted ; Nursed Fair/Poor (Twin A not feeding well), Breastfed Infant; Nursed Well Support Person: , Mother - Recovery Exam Fundal Tone: Firm Fundal Level: 1 Fingerbreadths Below Umbilicus Fundal Placement: Midline Lochia Amount: Scant Lochia Color: Rubra/Red Perineum Description: Intact, Minimal Bruising/Swelling Episiotomy/Laceration: None Bladder Status: Voiding Urinary Elimination: Voided - Exam General: Alert, Oriented HEENT: Pupils Equal Neck: Supple Lungs: Clear to Auscultation, Normal Respiratory Effort Cardiovascular: Regular Rate, Regular Rhythm GI/Abdominal Exam: Normal Bowel Sounds, Soft, Non-Tender, No Organomegaly, No Distention, No Abnormal Bruit, No Mass, Pelvis Stable Extremities: Normal Inspection, Normal Range of Motion, Non-Tender, No Pedal Edema, Normal Capillary Refill Skin: Warm, Dry, Intact Wound/Incisions: Healing Well Neurological: No New Focal Deficit Psy/Mental Status: Alert, Normal Affect, Normal Mood - Problem List Review Problem List Initiated/Reviewed/Updated: Yes - Assessment Assessment:: Delivery A: twins, APGARS 9/9 and 8/9. Wt: 5lb 5oz B pending. EBL 500cc, intact, stable P: routine pp plan of care PP day 1 A: VSS 130/80, AF, lochia small, FF, no concerns. Breast feeding. - Plan Plan:: A:21yo G1 EDC 06/08/2017 40 0/7wks. TWINS, A+, rubella and GBS unkwn. PNC with home patent legal assistant. Comes completely dilated vertex/breech presentation. Comes in labor completely dilated. Term twin . care from her mother whom is a clay machine operator. P: Moved to OR for and ECV by Dr Villa and then B delivered . Mother and baby's stable and bonding well. PP day 1 Continue pp plan of care. Will not discharge home today due to babies needing to stay another 24 hours minimum
--- NOTE | 2017-06-10 10:06 | US ---
EXAM DATE: 06/08/17 PATIENT'S AGE: 21 Patient: DELORIS SAHA Facility: [facility] Site . Site : 1995 Study: US-OB Pelvis [id number]/26/2017 10:53:21 AM Ordering Physician: Allen Chavez Final Report: INDICATION: Evaluate position of twin . Imaging performed in operating room pre delivery. TECHNIQUE: Ultrasound OB pelvis transabdominal. Real time desai scale imaging of the fetus was performed. COMPARISON: None Findings and impression: Limited imaging performed. Fetus A is in cephalic position. Fetus B is in breech position. Dictated by Wilder Wilson MD @ 06/08/2017 11:30:26 AM Dictated by: Wilder Wilson MD @ 06/08/2017 11:30:40 Signed by: Wilder Wilson MD @06/08/2017 11:30:40 AM (Electronic Signature) Report Signed by Proxy. SAMANTA
== END 2017-06-10 13:55 | disposition home or self-care (01) | DRG 775 ==
LOC: MW.OBCHECK 07:23 → MW.OB 07:25 → MW.OBCHECK 10:50 → OBSVTOIN 10:50 → MW.OB 10:50
PROVIDERS: ADMIT Obstetrics & Gynecology; ATTEND Obstetrics & Gynecology
PROC: 10E0XZZ Delivery of Products of Conception, External Approach (ICD-10-PCS; principal; 2017-06-08)
PROC: 10S0XZZ Reposition Products of Conception, External Approach (ICD-10-PCS; 2017-06-08)
DX: O32.1XX2 Maternal care for breech presentation, fetus 2 (principal); O30.003 Twin pregnancy, unspecified number of placenta and unspecified number of amniotic sacs, third trimester; O13.4 Gestational [pregnancy-induced] hypertension without significant proteinuria, complicating childbirth; O09.33 Supervision of pregnancy with insufficient antenatal care, third trimester; Z3A.40 40 weeks gestation of pregnancy; Z37.2 Twins, both liveborn
CPT/HCPCS: 36415; 59025; 59409; 59412; 76810; 76998; 76998-26; 80053; 80305; 85027; 86850; 86900; 86901; A9270-GY; J0690; J2405; J2590; J2704; J3010

== ENCOUNTER 2022-12-28 23:25 | Inpatient (IN) | payer SELFPAY ==
[2022-12-28] MEDS ORDERED: Carboprost Tromethamine 250 MCG/1 mL Vial IM PRN (23:41)
[2022-12-28] MEDS ORDERED: Butorphanol 1 MG/ML SDV IVPUSH PRN (23:41)
[2022-12-28] MEDS ORDERED: Lidocaine 1% 50 ML MDV INJECT PRN (23:41)
[2022-12-28] MEDS ORDERED: Misoprostol 200 MCG Tab PO PRN (23:41)
[2022-12-28] MEDS ORDERED: Water For Irrigation,Sterile 1,000 ML Container IRR PRN (23:41)
[2022-12-28] MEDS ORDERED: Methylergonovine 0.2 MG/1 ML Amp IM PRN (23:41)
[2022-12-28] MEDS ORDERED: Tranexamic Acid 1,000 MG in Sodium Chloride 0.9% 100 ML IV PRN (23:41)
[2022-12-28] MEDS ORDERED: Sodium Chloride 0.9% 20 ML SDV IV PRN (23:41)
[2022-12-28] MEDS ORDERED: Oxytocin/0.9 % Sodium Chloride 30 UNIT/500 ML BAG IV SCH (23:45)
[2022-12-28] MEDS ORDERED: Lactated Ringers 1,000 ML IV SCH (23:45)
[2022-12-29] MEDS ORDERED: Magnesium Sulfate/Water 4 GM in Premix Bag 1 BAG IV ONE (00:13)
[2022-12-29] MEDS ORDERED: Sodium Chloride 0.9% 2.5 ML Syringe FLUSH PRN (00:13)
[2022-12-29] MEDS ORDERED: Sodium Chloride 0.9% 20 ML SDV IV PRN (00:13)
[2022-12-29] MEDS ORDERED: Calcium Gluconate 10% 1 GM/10 ML SDV IV PRN (00:13)
[2022-12-29] MEDS ORDERED: NIFEdipine 10 MG Cap ONE (00:13)
[2022-12-29] MEDS ORDERED: NIFEdipine 10 MG Cap PO PRN (00:13)
[2022-12-29] MEDS ORDERED: Sodium Chloride 0.9% 10 ML Syringe FLUSH PRN (00:13)
[2022-12-29 00:16] LABS: HEMATOCRIT 38.5 % (36.0-46.0); HEMOGLOBIN 13.6 g/dL (12.0-16.0); MEAN CORPUSCULAR HEMOGLOBIN 29.3 pg (27.0-32.0); MEAN CORPUSCULAR HGB CONC 35.3 g/dL (31.0-37.0); PLATELET COUNT,PLT 279 K/uL (150-400); RED BLOOD CELL COUNT 4.64 M/uL (4.30-5.90); WHITE BLOOD CELL COUNT,WBC 14.25 K/uL (4.0-11.0)
[2022-12-29 00:39] LABS: A/G RATIO 0.8 (0.9-1.6); ALANINE AMINOTRANSFERASE,ALT 22 IU/L (14-63); ALBUMIN 3.1 g/dL (3.4-5.0); ALKALINE PHOSPHATASE 177 U/L (46-116); ASPARTATE AMNIOTRANSFERASE,AST 34 IU/L (15-37); BILIRUBIN TOTAL 0.4 mg/dL (0.2-1.0); BLOOD UREA NITROGEN,BUN 6 mg/dL (7.0-18.0); CALCIUM 9.2 mg/dL (8.5-10.1); CARBON DIOXIDE,CO2 22.2 mmol/L (21.0-32.0); CHLORIDE,CL 101 mmol/L (98-107); CREATININE 0.4 mg/dL (0.6-1.0); GLUCOSE RANDOM 92 mg/dL (74-106); POTASSIUM,K 4.6 mmol/L (3.5-5.1); PROTEIN TOTAL,TP 7.2 g/dL (6.4-8.2); SODIUM,NA 136 mmol/L (136-145)
[2022-12-29 00:40] LABS: ESTIMATED GFR 137 mL/min (>60)
[2022-12-29] MEDS ORDERED: Oxytocin 10 Units/1 ML SDV ONE (01:01)
[2022-12-29 01:55] LABS: APPEARANCE,URINE CLEAR; BILIRUBIN,URINE NEGATIVE (NEGATIVE); COLOR,URINE YELLOW; GLUCOSE,URINE NEGATIVE (NEGATIVE); KETONES,URINE 15 mg/dL (NEGATIVE); LEUKOCYTE ESTERASE,URINE NEGATIVE (NEGATIVE); NITRITE,URINE NEGATIVE (NEGATIVE); OCCULT BLOOD,URINE TRACE-INTACT (NEGATIVE); PROTEIN,URINE NEGATIVE (NEGATIVE); UROBILINOGEN,URINE 0.2 EU/dL (<2.0)
[2022-12-29] MEDS ORDERED: Carboprost Tromethamine 250 MCG/1 mL Vial ONE (02:33)
[2022-12-29] MEDS ORDERED: Acetaminophen 500 MG Tab PO PRN ×2 (05:43)
[2022-12-29] MEDS ORDERED: Benzocaine/Menthol 20%-0.5% Spray 78 GM Cannister TOP PRN (05:43)
[2022-12-29] MEDS ORDERED: Ibuprofen 400 MG Tab PO PRN (05:43)
[2022-12-29] MEDS ORDERED: oxyCODONE 5 MG Tab PO PRN (05:43)
[2022-12-29] MEDS ORDERED: Witch Hazel Medicated Pads 40/Jar TOP PRN (05:43)
[2022-12-29] MEDS ORDERED: Lanolin 100% Cream 7 GM Tube TOP PRN (05:43)
[2022-12-29] MEDS ORDERED: Bisacodyl 10 MG Supp RECTAL PRN (05:43)
[2022-12-29] MEDS ORDERED: Docusate Sodium 100 MG Cap PO PRN (05:43)
[2022-12-29] MEDS ORDERED: Ibuprofen 800 MG Tab PO PRN (05:43)
[2022-12-29 12:15] LABS: HEMATOCRIT 31.1 % (36.0-46.0); HEMOGLOBIN 10.8 g/dL (12.0-16.0)
[2022-12-29] MEDS ORDERED: NIFEdipine 30 MG Tab.ER PO ONE (15:55)
[2022-12-29] MEDS ORDERED: Labetalol 100 MG/20 ML MDV IVPUSH STA (20:16)
[2022-12-29] MEDS ORDERED: Labetalol 100 MG/20 ML MDV ONE (20:19)
[2022-12-29] MEDS ORDERED: hydrALAZINE 20 MG/ML SDV IVPUSH ONE (21:09)
[2022-12-29] MEDS ORDERED: Magnesium Sulfate/Water 100 ML ONE (21:29)
[2022-12-29] MEDS: Magnesium Sulfate/Water 20 GM/500 ML BAG IV SCH (22:06)
[2022-12-30] MEDS: Magnesium Sulfate/Water 20 GM/500 ML BAG IV SCH (09:06)
[2022-12-30] MEDS: NIFEdipine 30 MG Tab.ER PO SCH (09:06)
[2022-12-31 06:03] LABS: HEMOGLOBIN 9.3 g/dL (12.0-16.0); MEAN CORPUSCULAR HEMOGLOBIN 28.4 pg (27.0-32.0); MEAN CORPUSCULAR HGB CONC 33.2 g/dL (31.0-37.0); MEAN CORPUSCULAR VOLUME 85.4 fL (80.0-98.0); MEAN PLATELET VOLUME 10.5 fL (7.40-12.00); RED BLOOD CELL COUNT 3.28 M/uL (4.30-5.90); WHITE BLOOD CELL COUNT,WBC 9.28 K/uL (4.0-11.0)
[2022-12-31 06:26] LABS: A/G RATIO 0.7 (0.9-1.6); ALBUMIN 2.4 g/dL (3.4-5.0); BILIRUBIN TOTAL 0.2 mg/dL (0.2-1.0); CALCIUM 7.6 mg/dL (8.5-10.1); CARBON DIOXIDE,CO2 25.4 mmol/L (21.0-32.0); CREATININE 0.5 mg/dL (0.6-1.0); EST CRCL DRUG DOSING (CG) 137.33 mL/min; POTASSIUM,K 3.6 mmol/L (3.5-5.1)
[2022-12-31] MEDS: NIFEdipine 30 MG Tab.ER PO SCH (09:10)
== END 2022-12-31 14:30 | disposition home or self-care (01) | DRG 807 ==
LOC: MW.OB 23:25 → MW.OBCHECK 23:25 → MW.OB 23:41 → OBSVTOIN 12-29 01:00 → MW.OB 12-29 13:59
PROVIDERS: ADMIT Obstetrics & Gynecology; ATTEND Obstetrics & Gynecology
PROC: 10E0XZZ Delivery of Products of Conception, External Approach (ICD-10-PCS; principal; 2022-12-29)
PROC: 3E033VJ Introduction of Other Hormone into Peripheral Vein, Percutaneous Approach (ICD-10-PCS; 2022-12-29)
DX: O14.14 Severe pre-eclampsia complicating childbirth (principal); Z37.0 Single live birth; O42.02 Full-term premature rupture of membranes, onset of labor within 24 hours of rupture; Z3A.40 40 weeks gestation of pregnancy
CPT/HCPCS: 36415; 59025; 59409; 80053; 81003; 83735; 84550; 85014; 85018; 85027; 86592; 86850; 86900; 86901; A9270-GY; J0360; J2590; J3475; J3490